=== PATIENT | female | born 1960 | race Caucasian/White ===

== ENCOUNTER → 2021-03-26 | Outpatient (CLI) | payer OTHER ==
[~2021-03-26] MED LIST: IBUPROFEN600 MG PO; NORFLEX 100 MG100 MG PO
== END ==
LOC: KOH-I 15:09
DX: M54.2 Cervicalgia (principal); M47.812 Spondylosis without myelopathy or radiculopathy, cervical region
CPT/HCPCS: 72040

== ENCOUNTER 2021-04-23 13:08 | Emergency (ER) | payer OTHER | END 2021-04-23 16:00 | disposition home or self-care (01) | LOC: ER1 13:08 | DX: U07.1 COVID-19 (principal); E11.9 Type 2 diabetes mellitus without complications; Z88.5 Allergy status to narcotic agent; Z79.4 Long term (current) use of insulin | CPT/HCPCS: 0240U; 71046; 99283 ==

== ENCOUNTER → 2021-08-07 | Outpatient (CLI) | payer OTHER | LOC: EMI 12:54 | DX: M51.36 Other intervertebral disc degeneration, lumbar region (principal); M51.87 Other intervertebral disc disorders, lumbosacral region; M51.27 Other intervertebral disc displacement, lumbosacral region; M48.07 Spinal stenosis, lumbosacral region | CPT/HCPCS: 72148 ==